=== PATIENT | female | born 1970 | race Caucasian/White ===

== ENCOUNTER 2021-01-13 07:55 | Outpatient (CLI) | payer OTHER, SELFPAY ==
--- NOTE | 2021-01-13 08:06 | US_ITS ---
WS: [id number] DIAGNOSTIC BILATERAL DIGITAL MAMMOGRAM WITH CAD Bilateral breast ultrasound, limited. HISTORY: RT BREAST LUMP COMPARISON: None available. TECHNIQUE: Bilateral craniocaudad, mediolateral oblique, and mediolateral views are submitted. Spot c ompression RIGHT MLO and RIGHT MLO. Computer aided detection utilized. Breast composition: The breasts are heterogeneously dense, which may obscure small masses. Ovoid hype rdense mass corresponds to the palpable area in the anterior upper outer RIGHT breast. Mass measures 2.8 x 3.3 cm. There are 2 additional partially obscured masses posterior in the upper outer quadrant, each measuring approximately 1.6 x 1.4 cm. There is an additional ovoid mass with partially obscured margins in the upper outer quadrant of the LEFT breast at 2:00 measuring 1.7 x 1.4 cm. Bilateral breast ultrasound. RIGHT breast ultrasound: RIGHT breast: Large dominant cyst at 10:00, 2 cm from the nipple corresponds to the palpable abnormal ity. This mass measures 2.8 x 2.9 x 2.1 cm. There is good through transmission. No increased vascular ity. There are 2 additional cysts posterior to the large dominant cyst also at 10:00. The first cyst measuring 2.1 x 1.9 x 0.1 cm. The third cyst measures 1.3 x 1.1 x 1.0 cm. LEFT breast: At 1:00, 1 cm from the nipple is an ovoid mass with through transmission. Anechoic mass measures 2.1 x 1.9 x 1.0 cm. Consistent with a simple cyst. US/US breast BI limited* [id number] IMPRESSION: BI-RADS: 2-Benign FOLLOW UP: 1 Year Follow-up
--- NOTE | 2021-01-13 08:56 | MM_ITS ---
WS: [id number] DIAGNOSTIC BILATERAL DIGITAL MAMMOGRAM WITH CAD Bilateral breast ultrasound, limited. HISTORY: RT BREAST LUMP COMPARISON: None available. TECHNIQUE: Bilateral craniocaudad, mediolateral oblique, and mediolateral views are submitted. Spot c ompression RIGHT MLO and RIGHT MLO. Computer aided detection utilized. Breast composition: The breasts are heterogeneously dense, which may obscure small masses. Ovoid hype rdense mass corresponds to the palpable area in the anterior upper outer RIGHT breast. Mass measures 2.8 x 3.3 cm. There are 2 additional partially obscured masses posterior in the upper outer quadrant, each measuring approximately 1.6 x 1.4 cm. There is an additional ovoid mass with partially obscured margins in the upper outer quadrant of the LEFT breast at 2:00 measuring 1.7 x 1.4 cm. Bilateral breast ultrasound. RIGHT breast ultrasound: RIGHT breast: Large dominant cyst at 10:00, 2 cm from the nipple corresponds to the palpable abnormal ity. This mass measures 2.8 x 2.9 x 2.1 cm. There is good through transmission. No increased vascular ity. There are 2 additional cysts posterior to the large dominant cyst also at 10:00. The first cyst measuring 2.1 x 1.9 x 0.1 cm. The third cyst measures 1.3 x 1.1 x 1.0 cm. LEFT breast: At 1:00, 1 cm from the nipple is an ovoid mass with through transmission. Anechoic mass measures 2.1 x 1.9 x 1.0 cm. Consistent with a simple cyst. MM/[place] [id number] IMPRESSION: BI-RADS: 2-Benign FOLLOW UP: 1 Year Follow-up
== END 2021-01-13 07:56 | disposition home or self-care (01) ==
LOC: RADSHAW 07:59
PROVIDERS: PCP Nurse Practitioner Family; Visit Provider Nurse Practitioner Family
DX: N63.11 Unspecified lump in the right breast, upper outer quadrant (principal); N63.21 Unspecified lump in the left breast, upper outer quadrant
CPT/HCPCS: 76642; 77066